=== PATIENT | female | born 1970 | race Caucasian/White ===

== ENCOUNTER → 2021-01-24 15:48 | Outpatient (CLI) | payer OTHER, SELFPAY ==
--- NOTE | ~2021-01-24 | CT_ITS ---
EXAMINATION: CT abdomen pelvis wo con DATE: 01/24/2021 16:15 INDICATION: Right lower quadrant abdominal pain TECHNIQUE: Computed tomography (CT) of the abdomen and pelvis was performed without intravenous contr ast. The dose-length product was 817.37 mGy-cm. Automated exposure control and iterative reconstructi on technique were employed. COMPARISON: CT dated 11/15/2008. FINDINGS: Lung bases are unremarkable. Heart size normal. No significant pleural or pericardial effus ion. No significant vascular abnormality. No lymphadenopathy. The liver, spleen, pancreas, adrenal glands and kidneys are unremarkable. No evidence for appendiciti s. No abnormal pelvic masses or fluid collections. Gallbladder is contracted. No free air or free flu id. No acute osseous abnormality. IMPRESSION: 1. No acute abdominal abnormality. Reviewed, dictated and finalized at location A.
--- NOTE | ~2021-01-24 | XR_ITS ---
EXAMINATION: XR chest 2V 01/24/2021 16:15 INDICATION: Cough and chest pain PROCEDURE: 2 view chest COMPARISON: No prior studies for comparison. FINDINGS: The lungs are clear. The cardiomediastinal silhouette is within normal limits. There are no pleural effusions. There is no pneumothorax suspected. IMPRESSION: 1: NO ACUTE CARDIOPULMONARY DISEASE. Reviewed, dictated and finalized at location A.
== END ==
PROVIDERS: PCP Family Medicine; Visit Provider Nurse Practitioner Family
DX: R05 Cough (principal); R10.9 Unspecified abdominal pain
CPT/HCPCS: 71046; 74176

== ENCOUNTER 2021-02-11 11:47 | Outpatient (CLI) | payer OTHER, SELFPAY ==
--- NOTE | ~2021-02-11 | NM_ITS ---
EXAMINATION: NM hepatobiliary wo pharm DATE: 02/11/2021 15:25 CDT INDICATION: Unspecified abdominal pain COMPARISON: CT dated 01/24/2021. TECHNIQUE: 4.9 mCi Tc-99m mebrofenin (Choletec) was administered intravenously. Scintigraphic images of the abdomen were obtained for one hour. At the 1 hour time point, the patient drank 8 oz Ensure, and imaging was continued for [60 minutes. Gallbladder ejection fraction was calculated by the techno logist. FINDINGS: There is normal clearance of radiotracer from the blood pool. There is homogeneous tracer u ptake by the liver. Activity progresses to the bowel and gallbladder. The gallbladder ejection fract ion is 27%. Note that with this technique, normal GBEF >= 33%. IMPRESSION: 1. Mildly decreased gallbladder ejection fraction measuring 27%. Reviewed, dictated and finalized at location A.
== END 2021-02-11 11:48 | disposition home or self-care (01) ==
PROVIDERS: PCP Family Medicine; Visit Provider Nurse Practitioner Family
DX: R10.9 Unspecified abdominal pain (principal); R93.2 Abnormal findings on diagnostic imaging of liver and biliary tract
CPT/HCPCS: 78226; A9537

== ENCOUNTER → 2021-03-12 10:52 | Outpatient (CLI) | payer OTHER, SELFPAY ==
--- NOTE | ~2021-03-12 | US_ITS ---
EXAMINATION: US abdomen limited EXAM DATE: 03/12/2021 11:10 INDICATION: Right lower quadrant pain. Abnormal findings of biliary tract on other exam. TECHNIQUE: Multiple grayscale and Doppler images of the abdomen right upper quadrant were obtained (b y a technologist who performed the scan) and subsequently reviewed. There is no prior study for keith borges. FINDINGS: The pancreatic head and body are normal in appearance. The pancreatic tail is not visualized. The l iver has normal echogenicity and contour. There are no focal liver lesions identified. There is no evidence of intrahepatic biliary duct dilation. Portal venous flow was seen in the hepatopedal, nor mal direction and has normal Doppler waveform. No right-sided hydronephrosis. Common bile duct measures 4 mm, which is normal. The gallbladder wall is normal in thickness, with ex pected amount of distention. No sonographic evidence of pericholecystic fluid. There is no cholelit hiases. Technologist performing exam reports patient did not demonstrate sonographic Howard's sign. Please note that this sign is less reliable in patients who have received pain medication. IMPRESSION: 1. Unremarkable abdominal ultrasound exam. Reviewed, dictated and finalized at location A.
== END ==
PROVIDERS: PCP Family Medicine; Visit Provider Surgery
DX: R10.31 Right lower quadrant pain (principal)
CPT/HCPCS: 76705

== ENCOUNTER 2022-08-20 08:37 | Outpatient (CLI) | payer OTHER, SELFPAY ==
--- NOTE | ~2022-08-20 | XR_ITS ---
EXAMINATION: XR chest 2V DATE: 08/20/2022 10:49 INDICATION: Cough and dyspnea TECHNIQUE: PA and lateral views of the chest were obtained. COMPARISON: Chest radiograph dated 01/24/2021 FINDINGS: The lungs are clear with no focal airspace opacities, pulmonary edema, pleural effusion or pneumothor ax. The cardiomediastinal silhouette is normal. Visualized bones and soft tissues are unremarkable. IMPRESSION: 1. No acute cardiopulmonary disease. Reviewed, dictated and finalized at location L. CIPAL CLERK TYPIST
--- NOTE | 2022-08-20 08:58 | ECHO_ITS ---
Patient Info Name: Justine Capone Age: 52 years : 1970 Gender: Female Ht: 67 in Wt: 185 lbs BSA: 2.01 m2 HR: 65 bpm BP: 99 / 65 mmHg Technical Quality: Good Exam Date: 08/20/2022 9:01 AM Exam Location: [facility] Patient Status: Outpatient Admit Date: 08/20/2022 Staff Ordering Physician: Cm Kidd MD Alteration Specialist: Mickey Howard, BRANT, RT Attending Provider: Cm Kidd MD Referring Physician: Marti ANDERSON; Exam Type: CA echo doppler color flow Study Info Indications R06.00 - Dyspnea, unspecified Complete two-dimensional, color flow and Doppler transthoracic echocardiogram is performed. Strain analysis performed. Summary 1. Complete two-dimensional, color flow and Doppler transthoracic echocardiogram is performed. 2. Left ventricular chamber dimension is normal. 3. Left ventricular systolic function is normal, estimated at 55-60%. 4. The left ventricular diastolic function is normal. 5. E/e' 9 is minimally elevated. 6. Global longitudinal strain is normal at -17.9%. 7. There is trace mitral valve regurgitation. Left Ventricle E/e' 9 is minimally elevated. Global longitudinal strain is normal at -17.9%. Left ventricular chamber dimension is normal. Left ventricular systolic function is normal, estimated at 55-60%. The left ventricular diastolic function is normal. Right Ventricle Right ventricular systolic function is normal and with normal TAPSE 2.3 cm. Right ventricular chamber dimension is normal. Left Atria Left atrial chamber dimension is normal. Right Atria Right atrial chamber dimension is normal. Aortic Valve The aortic valve is trileaflet. There is no aortic valve stenosis. There is no aortic valve regurgitation. Pulmonic Valve There is no pulmonic regurgitation. Mitral Valve There is no mitral valve stenosis. There is trace mitral valve regurgitation. Tricuspid Valve There is no tricuspid valve regurgitation. Pericardium/Pleural There is no pericardial effusion. Inferior Vena Cava Normal inferior vena cava with >50% collapse upon inspiration consistent with normal right atrial pressure, 5 mmHg. Aorta The aortic root size at the sinus of Valsalva is normal. Left Ventricular Outflow Tract Name Value Normal LVOT 2D LVOT Diameter 2.0 cm LVOT Doppler LVOT Peak Gradient 4 mmHg LVOT Mean Gradient 2 mmHg LVOT VTI 21 cm LVOT VTI/AV VTI Ratio 0.8 LVOT Stroke Volume 66 ml LVOT CO 4.8 l/min LVOT CI 2.4 l/min/m2 Mitral Valve Name Value Normal MV Doppler MV Decel Vinton 441 cm/s2 MV PHT 62 ms
--- NOTE | 2022-08-20 12:28 | WPDPFTINT ---
PFT Procedure Performed PFT Procedure Performed Spirometry with Pre/Post Bronchodilator Plethysmography (Lung Vol) Diffusing Cap (DLCO) Flow Vol Loop PFT Interpretation This is a pulmonary function test with pre and post-bronchodilator spirometry, plethysmography and diffusing capacity. The test was performed and results interpreted in accordance with the 2019 and 2005 ATS/ERS Task Force guidelines respectively using the Global Lung Function Initiative-2012 reference equations. Patient demonstrated good effort and cooperation. Reproducibility criteria were met. The quality of the pre bronchodilator spirometry maneuver was Grade A and post bronchodilator spirometry maneuver was Grade A. Findings: Spirometry: The contour the inspiratory and expiratory flow tracing are normal. The pre bronchodilator FVC is 4.06 L, 109% predicted. The pre bronchodilator FEV1 is 2.75 L, 93% predicted. The pre bronchodilator FEV1: FVC ratio is 68%. the post bronchodilator FVC is 4.19 L, representing a 3% increase. The post bronchodilator FEV1 is 3.08 L, representing a 12% increase. The post bronchodilator FEV1: FVC ratio is 74%. Plethysmography: The total lung capacity is 5.97 L, 109% predicted. The functional residual capacity is 3.42 L, 110% predicted. The residual volume is 1.92 L, 96% predicted. Diffusion capacity: The diffusing capacity unadjusted for hemoglobin and carboxyhemoglobin is 20.2, 85% predicted. The diffusing capacity adjusted for alveolar volume is 4.01, 91% predicted. Impression: There is a mild obstructive abnormality with a normal FEV1 and with significant improvement after inhaling a single dose of albuterol. The lung volumes are normal. The diffusing capacity is normal. There are no prior studies for comparison
== END 2022-08-20 08:38 | disposition home or self-care (01) ==
LOC: ANHCARD 08:38
PROVIDERS: PCP Family Medicine; Visit Provider Family Medicine
DX: R06.09 Other forms of dyspnea (principal); R05.9 Cough, unspecified; R94.2 Abnormal results of pulmonary function studies
CPT/HCPCS: 71046; 93306; 94060; 94726; 94729

== ENCOUNTER 2022-11-30 06:28 | Day surgery (SDC) | payer OTHER, SELFPAY ==
[2022-11-04 09:16] VITALS: BMI 30.9
[2022-11-16 13:54] VITALS: BMI 29.0
[2022-11-30 06:45] VITALS: BP 115/78; PULSE 66; RESP 20; TEMP 36.7; O2SAT 97
[2022-11-30] MEDS: LACTATED RINGERS 1,000 ML 150 ML IV CONT (07:04)
--- NOTE | 2022-11-30 07:17 | WPDANESEPPF ---
Anes - Initial Pre Proc Eval Procedure: Operation Date: 11/30/22 08:00 Proposed Procedures p Diagnostic Colonoscopy - Roly Woody MD Date/Time: 11/30/22 07:17 Surgeon: Roly Woody MD Pre Op Diagnosis: History of Colon Polyps Patient Data Age: 52 Gender: F Height: 1.7 m Weight: 86.4 kg Last Vital Signs Temp 36.7 C 11/30/22 06:45 Pulse 66 11/30/22 06:45 Resp 20 11/30/22 06:45 BP 115/78 11/30/22 06:45 Pulse Ox 97 11/30/22 06:45 O2 Del Method Room Air 11/30/22 06:45 Allergies Allergy/AdvReac Type Severity Reaction Status Date / Time codeine Allergy Unknown Unknown Verified 11/30/22 06:41 Home Medications Medication Instructions Recorded Confirmed Type escitalopram oxalate 10 mg tablet 10 mg PO DAILY #30 tabs 03/27/22 11/30/22 Rx (Lexapro) albuterol sulfate 90 mcg/actuation 2 puff inhalation QID PRN 08/20/22 11/30/22 Rx aerosol inhaler (Ventolin HFA) shortness of breath or wheezing #8.5 grams polyethylene glycol 3350 17 17 g PO DAILY 08/25/22 11/30/22 History gram/dose oral powder (Miralax) sodium,potassium,mag sulfates 17.5 See Rx Instructions PO .COMPLEX 11/04/22 11/30/22 Rx gram-3.13 gram-1.6 gram oral soln #354 mL (Suprep Bowel Prep Kit) cefdinir 300 mg capsule 300 mg PO Q12H 11/23/22 11/30/22 History prednisone 20 mg tablet 20 mg PO . q.a.m. #5 tabs 11/23/22 11/30/22 Rx tobramycin 0.3 % eye drops 1 drp EACH EYE Q4H 11/23/22 11/30/22 History Patient hx anesthesia problems: none Family hx anesthesia problems: none Results Review: All pre-operative results and documents have been reviewed as part of the pre-operative evaluation. [facility] Past Medical History Medical History (Updated 11/23/22 @ 15:50 by Cm Kidd MD) Abnormal CT scan, gallbladder Abnormal mammogram of left breast (11/12/22) new lesion left breast 4 o'clock position on screening self-referred mammogram 11/12/2022 with need for diagnostic views and left breast ultrasound. Acute bronchitis (03/24/22) Acute non-recurrent maxillary sinusitis BMI 29.0-29.9,adult BMI 30.0-30.9,adult BMI 31.0-31.9,adult Conjunctivitis (~11/21/22) Contact dermatitis due to metals Cough COVID-19 (08/25/21) tested positive around 08/28/2021 Facial cellulitis Fatigue Mild intermittent asthma in adult without complication (~2021) PFT on 08/10/2022 with mild obstructive defect with reversibility. Chest x-ray on 08/20/2022 was negative. 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 Echocardiogram on 08/20/2022 was normal with ejection fraction 55-60% with trace mitral valve regurgitation. Right sided abdominal pain Stye UTI (urinary tract infection) Surgical History Surgical History H/O tubal ligation S/P endometrial ablation Family History Family History Mother Carcinoma of colon, Onset Age: 58 Grandparent Family history of malignant melanoma, Onset Age: 58 Social History Social History (Updated 08/25/22 @ 11:47 by Mary Beth Sahni MA) Smoking status: Never smoker Alcohol intake: former Substance use: never Substance use type: does not use Lack of Transportation: No Lack of Food: Never True Current Housing: I Have Housing Concerned About Future Housing: No Difficulty Paying Gas/Electric Bills: No Difficulty Paying for Meds: No Currently Unemployed: No Education: Master's Degree or Higher Difficulty w/ Childcare or Family Care: No Living arrangements: with family Spiritual care concerns: No Anes - Eval Final PreProcedure Day of Procedure 11/30/22 07:17 Patient weight: obese Heart: regular rate and rhythm Lungs: clear to auscultation and normal air movement Airway: Mallampati
--- NOTE | 2022-11-30 07:27 | PM.HPGS ---
History of Present Illness History of Present Illness Consent: Risks, benefits, and alternatives have been discussed and questions answered. Patient agrees to proceed with procedure. Chief complaint: History of Colon Polyps Narrative: Justine Capone is a 52 year old female Presents for screening colonoscopy. Patient had a prior history of colon polyps approximately 5 years ago at time of previous endoscopy. Patient's family history is significant that her mother had colon cancer. Patient presents for for screening colonoscopy today. Her current weight appetite and bowel movements are normal. Review of Systems Review of Systems: Review of systems noncontributory. [facility] Past Medical History Medical History (Updated 11/30/22 @ 07:29 by Roly Woody MD) Abnormal CT scan, gallbladder Abnormal mammogram of left breast (11/12/22) new lesion left breast 4 o'clock position on screening self-referred mammogram 11/12/2022 with need for diagnostic views and left breast ultrasound. Acute bronchitis (03/24/22) Acute non-recurrent maxillary sinusitis BMI 29.0-29.9,adult BMI 30.0-30.9,adult BMI 31.0-31.9,adult Conjunctivitis (~11/21/22) Contact dermatitis due to metals Cough COVID-19 (08/25/21) tested positive around 08/28/2021 Facial cellulitis Fatigue Mild intermittent asthma in adult without complication (~2021) PFT on 08/10/2022 with mild obstructive defect with reversibility. Chest x-ray on 08/20/2022 was negative. Obesity (BMI 30.0-34.9) Overweight (BMI 25.0-29.9) [id number] syndrome manifesting as chronic dyspnea PFT on 08/10/2022 with mild obstructive defect with significant reversibility with bronchodilator. Echocardiogram on 08/20/2022 was normal with ejection fraction 55-60% with trace mitral valve regurgitation. Right sided abdominal pain Stye UTI (urinary tract infection) Surgical History Surgical History H/O tubal ligation S/P endometrial ablation Family History Family History Mother Carcinoma of colon, Onset Age: 58 Grandparent Family history of malignant melanoma, Onset Age: 58 Social History Social History (Updated 08/25/22 @ 11:47 by Mary Beth Sahni MA) Smoking status: Never smoker Alcohol intake: former Substance use: never Substance use type: does not use Lack of Transportation: No Lack of Food: Never True Current Housing: I Have Housing Concerned About Future Housing: No Difficulty Paying Gas/Electric Bills: No Difficulty Paying for Meds: No Currently Unemployed: No Education: Master's Degree or Higher Difficulty w/ Childcare or Family Care: No Living arrangements: with family Spiritual care concerns: No Meds Home Medications and Allergies Home Medications Medication Instructions Recorded Confirmed Type escitalopram oxalate 10 mg tablet 10 mg PO DAILY #30 tabs 03/27/22 11/30/22 Rx (Lexapro) albuterol sulfate 90 mcg/actuation 2 puff inhalation QID PRN 08/20/22 11/30/22 Rx aerosol inhaler (Ventolin HFA) shortness of breath or wheezing #8.5 grams polyethylene glycol 3350 17 17 g PO DAILY 08/25/22 11/30/22 History gram/dose oral powder (Miralax) sodium,potassium,mag sulfates 17.5 See Rx Instructions PO .COMPLEX 11/04/22 11/30/22 Rx gram-3.13 gram-1.6 gram oral soln #354 mL (Suprep Bowel Prep Kit) cefdinir 300 mg capsule 300 mg PO Q12H 11/23/22 11/30/22 History prednisone 20 mg tablet 20 mg PO . q.a.m. #5 tabs 11/23/22 11/30/22 Rx tobramycin 0.3 % eye drops 1 drp EACH EYE Q4H 11/23/22 11/30/22 History Allergies Allergy/AdvReac Type Severity Reaction Status Date / Time codeine Allergy Unknown Unknown Verified 11/30/22 06:41 Vital Signs Vital Signs - 24 hr 11/30/22 06:45 Temperature 98.1 F Pulse Rate 66 Respiratory Rate 20 Blood Pressure 115/78 Pulse Oximetry 97 Oxygen Delivery Room Air Exam Narr
[2022-11-30 08:28] VITALS: BP 86/57; PULSE 59; RESP 16; O2SAT 98
[2022-11-30 08:38] VITALS: BP 102/65; PULSE 57; RESP 16; O2SAT 100
[2022-11-30 08:48] VITALS: BP 112/72; PULSE 61; RESP 20; O2SAT 100
--- NOTE | 2022-11-30 14:57 | WPDANESPN ---
Anes - Prog Note Post-Op Date/Time: 11/30/22 14:57 Cardiovascular status: normal Respiratory status: normal Airway patency: baseline Mental status: baseline Post-Op hydration status: normal Vital Signs: Last Vital Signs Temp 36.7 C 11/30/22 06:45 Pulse 61 11/30/22 08:48 Resp 20 11/30/22 08:48 BP 112/72 11/30/22 08:48 Pulse Ox 100 11/30/22 08:48 O2 Del Method Room Air 11/30/22 08:48 Pain Score (VAS): 0 I/O: Intake & Output 11/29/22 11/30/22 11/30/22 23:59 07:59 15:59 Intake Total 650 Balance 650 Post-procedural complaints: none Patient Feedback: Patient satisfied with anesthetic care.
== END 2022-11-30 09:11 | disposition home or self-care (01) ==
PROVIDERS: PCP Family Medicine; Visit Provider Internal Medicine Gastroenterology
PROC: 0DJD8ZZ Inspection of Lower Intestinal Tract, Via Natural or Artificial Opening Endoscopic (ICD-10-PCS; CPT 45378; principal; 2022-11-30 08:00)
DX: Z86.010 Personal history of colon polyps (principal)
CPT/HCPCS: 45378